=== PATIENT | male | born 1955 | race Caucasian/White ===

== ENCOUNTER 2018-02-25 09:13 | Day surgery (SDC) | payer MEDICARE ==
[2018-02-23 11:35] VITALS: BMI 22.1
[~2018-02-25 09:13] MED LIST: DEXAMETHASONE SOD PHOSPHATE 10 MG/ML 1 ML VIAL IV ONE; HYDROmorphone 1 MG/ML 1 ML SYRINGE IVP PRN; LACTATED RINGERS 1,000 ML IV SCH; LIDOCAINE 1% 20 ML VIAL (10MG/ML) FOR IV START INTRADERMA PRN; ONDANSETRON 4 MG/2 ML VIAL IVP ONE; SCOPOLAMINE 1.5MG/72HR PATCH TRANSDERM ONE
[2018-02-25 10:13] VITALS: RESP 16; TEMP 97.4
[2018-02-25] MEDS ORDERED: PROPOFOL 10 MG/ML 20 ML VIAL IV ONE (10:56)
--- NOTE | 2018-02-25 11:22 | P.PCN ---
Date of Procedure: 02/25/18 Procedure(s) Performed: Procedure: Total colonoscopy. Preoperative diagnosis: History of polyps. Postoperative diagnosis: 1. Diverticulosis with no evidence of acute diverticulitis or strictures. 2. Low-grade internal hemorrhoids with no evidence of spontaneous bleeding. 3. No polyps or tumors seen. Preparation: HalfLytely prep. Sedation: Was provided by anesthesia. Brief clinical history: The patient is a 62-year-old male who is scheduled for this evaluation because of history of tubular adenoma. His last colonoscopy was in 2013. The patient has no current abdominal issues or anemia. He notices blood on the toilet tissue regularly. Last episode around 2 weeks ago. Procedure: With the patient on his left lateral decubitus position and after informed consent and adequate sedation, the perianal area was inspected and it did not show any fissures or fistulas. There were no masses felt on digital rectal examination. The Olympus CFH 190LVideo colonoscope was then inserted in the rectum in the usual fashion and advanced to the cecum. There was the some diverticular orifices seen scattered in the sigmoid and occasional small orifice around the hepatic flexure and on the right side with no evidence of acute diverticulitis or strictures. The mucosa appeared healthy. No polyps or tumors were seen. Low-grade internal hemorrhoids were noted upon withdrawing the endoscope with no evidence of spontaneous bleeding. The patient tolerated the procedure well. Plan: The patient was reassured. Discussed dietary measures and local care for hemorrhoids. He will follow-up with you as planned and I recommended repeat exam in 5 years
[2018-02-25 11:32] VITALS: BP 108/72; PULSE 8
== END 2018-02-25 12:05 | disposition home or self-care (01) ==
LOC: ORWHC2ENDO 09:13
DX: Z12.11 Encounter for screening for malignant neoplasm of colon (principal); K57.30 Diverticulosis of large intestine without perforation or abscess without bleeding; K64.8 Other hemorrhoids; Z86.010 Personal history of colon polyps; F31.9 Bipolar disorder, unspecified; Z79.899 Other long term (current) drug therapy
CPT/HCPCS: J2704; G0105